=== PATIENT | female | born 2000 | race Caucasian/White ===

== ENCOUNTER 2022-04-01 08:06 | Emergency (ER) | payer OTHER, SELFPAY ==
[2022-04-01] VITALS (8 sets, daily range): BP systolic 120–122; BP diastolic 66–70; PULSE 82–122; RESP 12–22; TEMP 37.7; O2SAT 96–98; BMI 25.6
--- NOTE | 2022-04-01 08:26 | DI.RAD.S_ITS ---
PROCEDURE: XR CHEST 1V INDICATIONS: fever TECHNIQUE: One view of the chest was acquired. COMPARISON: None. FINDINGS: Surgical changes and devices: None. Lungs and pleura: On this semiupright portable chest examination, no large pneumothorax or large pleural effusions are seen. No focal infiltrates are seen. Mediastinum: Mediastinal contours appear normal. Heart size is normal. Bones and chest wall: No suspicious bony lesions. Overlying soft tissues appear unremarkable. IMPRESSION: Portable chest within normal limits. Dictated by: Giovanni Romano M.D. on 04/01/2022 at 8:33 Approved by: Giovanni Romano M.D. on 04/01/2022 at 8:33
--- NOTE | 2022-04-01 09:00 | ED_ITS ---
HPI - Arrhythmia/Palpitations General Chief Complaint: Arrhythmia/Palpitations Stated Complaint: heart rate navya has a heart cond fever Time Seen by Provider: 04/01/22 08:25 Source: patient Mode of arrival: Ambulatory History of Present Illness HPI narrative: Patient is a 21-year-old female who has a history of SVT presenting with elevated heart rate and fever. She says she started not feeling well 2 nights ago yesterday felt a little under the weather maybe a mild cough for sore throat. But nothing too terrible. She has a heart rate monitor and it alert to whenever her heart rate is over 100. She said when she was up and moving around yesterday her heart rate was and when the 150s. I did not feel like her previous SVT. She denies any bone pain nausea vomiting pain for frequent urination no ear pain neck pain headache. Overall appears well but is worried because of her elevated heart rate. Current heart rate is 98. She denies any dizziness lightheadedness or shortness of breath Related Data Allergies Allergy/AdvReac Type Severity Reaction Status Date / Time No Known Drug Allergies Allergy Verified 04/01/22 08:30 Review of Systems Review of Systems Narrative: GENERAL: See HPI HEENT: Denies sinus pain, ear pain, sore throat, difficulty swallowing, neck pain RESPIRATORY: Denies dyspnea, cough, wheezing, hemoptysis, sputum. CARDIOVASCULAR: See HPI GASTROINTESTINAL: Denies nausea, vomiting, abdominal pain, diarrhea, constipation, melena. : Denies dysuria, frequency, incontinence, hematuria, urinary retention, flank pain. MUSCULOSKELETAL: Denies weakness, joint pain, or bony pain SKIN: No rash, no erythema, no pruritus NEUROLOGIC: Denies weakness, dizziness, headache, numbness, change in speech, confusion PSYCHIATRIC: No concerning psychosocial issues. 12 point review of systems is negative except for those stated above and HPI Patient History Social History Smoking Status: Former smoker Smoking Status: Former smoker alcohol intake frequency: 0-2 drinks per day Substance Use Type: does not use Exam Initial Vital Signs Initial Vital Signs: Vital Signs Pulse Rate 99 H 04/01/22 08:24 Respiratory Rate 18 04/01/22 08:24 Pulse Oximetry 97 04/01/22 08:24 GENERAL: Alert pleasant 21-year-old female appears well and in no acute distress. HEENT: Head atraumatic,EOMI, pupils reactive, face symmetric, no meningeal signs CARDIOVASCULAR: Regular rate and rhythm without murmurs, rubs or gallops. RESPIRATORY: Breath sounds equal bilaterally, no wheezes rales or rhonchi. ABDOMEN: Soft, nontender. Normoactive bowel sounds all 4 quadrants. No guarding or rebound. EXTREMITIES: Normal range of motion, no clubbing or edema. Neurovascularly intact NEUROLOGICAL: Alert and oriented x4. SKIN: Warm, dry, no laceration, no petechiae, no rashes or lesions. Scores PERC Score Age greater than or equal to 50 years: No Heart rate greater than or equal to 100 bpm: No Room Air O2 Sat less than 95%: No Unilateral leg swelling: No Recent trauma or surgery: No Hemoptysis: No Prior PE or DVT: No Hormone Use: No Total PERC Score: 0 Course Orders Ordered: ED Orders 04/01/22 08:25 COVID19 -Nasal RAPID/Pre-Proc Stat EKG-12 Lead Stat 04/01/22 08:26 Chest [XR chest 1V] Stat 04/01/22 08:53 Urine Culture Stat Urine Microscopic Stat Vital Signs Vital signs: Vital Signs - 8 hr 04/01/22 08:26 Temperature 99.8 F H Pulse Rate 98 H Respiratory Rate 16 Blood Pressure 122/70 Pulse Oximetry 98 Oxygen Delivery Method Room Air MDM - Arrhythmia/Palpitations Lab Data Labs: Lab Results 04/01/22 04/01/22 Range/Units 08:30 09:18 Urine RBC 1-5/hpf (0-5/HPF) Urine WBC 10-30/hpf H (0-5/HPF) Ur Squamous Epith Cells 1-5 /hpf (0-5/HPF) Urine Bacteria Many (>30) H (None) Ur Culture Indicated? Culture not indicate SARS-CoV-2 (PCR) Negative (Negative) Point of Care Testing Test Results Negative Urine Dip Bedside Urine Glucose Negative Bedside Urine Bilirubin - Negative Bedside Urine Ketone - Negative Urine Specific [place] 1.025 Bedside Urine Occult Blood +++ Bedside Urine pH 6.0 Bedside Urine Protein + 30 Bedside Urine Urobilinogen +/- 1mg Bedside Urine Nitrite - Negative Bedside Urine Leukocytes ++ 125 Esterase Imaging Data Chest x-ray: Radiologist's Impresson: Patient: Qing White MR#: [id number] : 2000 Acct:[id number] Age/Sex: 21 / F Date of Service: 04/01/22 Loc: ED Accession Number: [id number] ?? Procedure: XR chest 1V Ordering Provider: Maria Esther Anna D.O. PROCEDURE:? XR CHEST 1V ? INDICATIONS:? fever ? TECHNIQUE:? One view of the chest was acquired.? ? COMPARISON:? None. ? FINDINGS:? ? Surgical changes and devices:? None.? ? Lungs and pleura:? On this semiupright portable chest examination, no large pneumothorax or large pleural effusions are seen.? No focal infiltrates are seen.? ? Mediastinum:? Mediastinal contours appear normal.? Heart size is normal.? ? Bones and chest wall:? No suspicious bony lesions.? Overlying soft tissues appear unremarkable.? IMPRESSION:? ? Portable chest within normal limits. ? ? ? Dictated by: Giovanni Romano M.D. on 04/01/2022 at 8:33 ? ? ECG Data Interpretation: Normal sinus rhythm rate 101 UT interval 152 QRS [address] changes no T- wave inversion MDM Narrative Medical decision making narrative: The patient has low-grade fever sounds like she has had some upper respiratory like symptoms and fever which can cause elevated heart rate. She has a negative PERC score. No painful or frequent urination no other sign of infection. She ambulates in the ED heart rate does increase to 120 but he is relatively asymptomatic at this time I discussed with her doing possible blood work however he denied both agree at she can go home if symptoms worsen then return to work further workup. Discharge Plan Departure Patient Disposition: Home Clinical Impression: Upper respiratory infection Instructions: DI for Viral Upper Respiratory Infection -- Adult Activity Restrictions/Additional Instructions: *You have been diagnosed with respiratory infection *What to do: At this time I suspect that her elevated heart rate may be due to a fever and a viral syndrome. You do not have COVID today are chest x-ray is negative. No evidence of SVT today however please continue to monitor. Be sure to stay hydrated drinking water or Gatorade. Treat fever as needed with Tylenol or ibuprofen. *Continue to take medications as directed Tylenol 1000 mg every 6 hours if needed for mild pain or fever Motrin 600 mg every 6 hours if needed for pain or fever *Follow up with your primary care provider in 2-3 days or call [phone] *Return to ER if you should have persistently elevated heart rate greater than 120 while at rest, shortness of breath, palpitations, passing out or any new, worsening or concerning symptoms Referrals: Anne Marie Rivera MD [Primary Care Provider] - Visit Report Forms: Patient Portal/API
[2022-04-01 09:02] LABS: COVID19 -Nasal RAPID Negative (Negative)
[2022-04-01 09:38] LABS: Bacteria Urine Many (>30); RBC Urine 1-5/HPF (0-5/HPF); Squamous Epithelial Cell Urine 1-5 /HPF (0-5/HPF); WBC Urine 10-30/HPF (0-5/HPF)
== END 2022-04-01 10:09 | disposition home or self-care (01) ==
PROVIDERS: Emergency Provider Emergency Medicine; PCP Pediatrics
DX: J06.9 Acute upper respiratory infection, unspecified (principal); R05.9 Cough, unspecified; R00.0 Tachycardia, unspecified; Z20.822 Contact with and (suspected) exposure to COVID-19
CPT/HCPCS: 71045; 81003; 81015; 81025; 87086; 87635; 93005; 93010; 99282; 99284; C9803